=== PATIENT | male | born 1980 | race Caucasian/White ===

== ENCOUNTER 2021-04-23 08:54 | Emergency (ER) | payer MEDICAID ==
[~2021-04-23] VITALS: Ht 175.3 cm; Wt 77.0 kg
[2021-04-23 10:37] VITALS: BP 117/75
== END 2021-04-23 17:00 | disposition home or self-care (01) ==
LOC: ER 09:06
DX: R55 Syncope and collapse (principal); S00.03XA Contusion of scalp, initial encounter; F11.10 Opioid abuse, uncomplicated; W18.11XA Fall from or off toilet without subsequent striking against object, initial encounter; Y93.89 Activity, other specified; Y92.012 Bathroom of single-family (private) house as the place of occurrence of the external cause
CPT/HCPCS: 99283